=== PATIENT | female | born 1960 | race Caucasian/White ===

== ENCOUNTER → 2016-12-17 | Outpatient (CLI) | payer OTHER ==
[~2016-12-17] MED LIST: ASPIRIN PO; CALCIUM 500 + D1 TAB PO; CERTAGEN PO; ESTRACE PO; NEXIUM PO; PRAVASTATIN SOD20 MG PO; VITAL-D RX TABL1 TAB PO
--- NOTE | ~2016-12-17 | CT2 ---
[facility] A Service of [facility] & [facility] RADIOLOGY TEXT RESULTS PATIENT: LOREE HESS LOCATION: [facility] : 62 UNIT #: [id number] AGE: [address]: Дмитрий Qureshi MD SEX: F ORDER DR: [id number] [facility] [address] [place], [place] [address] [id number] O MR#: [id number] Acc #: [id number] NAME: LOREE HESS : 1960 SEX: F STUDY DATE/TIME: 12/17/2016 14:26 UNIT: [facility] ROOM: STUDY DESCRIPTION: CT Abd and Pelv W Cont Attending Physician: Дмитрий Qureshi M.D. Referring Physician: Дмитрий Qureshi M.D. Ordering Physician: Дмитрий Qureshi M.D. Primary Care Physician: Sherrie Briceno M.D. MEDICAL IMAGING REPORT This report is preliminary unless electronic signature is present EXAM CT abdomen and pelvis 12/17/2014 HISTORY Pain. Right lower quadrant pain since 12/16/2016. History of hysterectomy and bladder repair. TECHNIQUE CT abdomen and pelvis performed with intravenous administration of 100 mL Isovue-370. Enteric contrast also administered. COMPARISON STUDIES 01/29/2015. FINDINGS 3-4 mm noncalcified subpleural nodule posterolateral left lower lobe, image number 1, unchanged from CT of the abdomen dated 04/07/2010, felt to be benign given stability over this time course. Lung bases otherwise remarkable. Prior bilateral augmentation mammoplasty. Inferior heart pericardium unremarkable. 3 subcentimeter hypodense foci of right hepatic lobe, unchanged from prior study, felt to represent stable cysts. Gallbladder unremarkable. Spleen, pancreas, adrenal glands, kidneys normal. No hydronephrosis or hydroureter. No perinephric inflammatory change. CT PELVIS: No inguinal adenopathy. Urinary bladder is unremarkable. Status post hysterectomy. Question of mild generalized prominence of the vaginal wall with some haziness in the perivaginal fat. Correlate with any clinical signs or symptoms of vaginitis. This is a questionable finding and weight should be given to clinical exam. No suspicious adnexal structures. No fluid collections in the pelvis. No pelvic or retroperitoneal adenopathy. Distal esophagus, stomach, small bowel STS. [facility] [place] Service of [facility] RADIOLOGY TEXT RESULTS PATIENT: LOREE HESS LOCATION: [facility] : 62 UNIT #: [id number] AGE: [address]: Дмитрий Qureshi MD SEX: F ORDER DR: unremarkable. Appendix normal. Colon shows uncomplicated sigmoid diverticulosis. Aorta normal in caliber. Portal vein and its tributaries appear patent. Bony structures are unremarkable. IMPRESSION 1. Patient is status post hysterectomy. There is questionable mild prominence of the vaginal wall diffusely with some questionable mild haziness in the perivaginal fat. Please correlate with any clinical signs or symptoms of vaginitis. Weight should be given the clinical assessment. 2. No other potentially acute abnormalities are seen in the abdomen or pelvis. The gallbladder, pancreas, kidneys, appendix are normal in appearance. Remainder of the alimentary canal notable for uncomplicated and mild sigmoid diverticulosis. 3. 3-4 mm noncalcified nodule left posterolateral lower lobe, unchanged from 2010 and felt to be benign in nature. 4. Prior bilateral augmentation mammoplasty. 5. Stable subcentimeter hepatic cysts. Dictated by... Ariel Elmore M.D. THIS IS AN ELECTRONICALLY VERIFIED REPORT Ariel Elmore M.D. at 12/18/2016 2:14 PM CLARA/benito TD: 12/17/2016 15:55 JOB #: [id number] MEDICAL IMAGING REPORT Page 1 of 1 COPY
[2016-12-17 13:11] LABS: HEMATOCRIT 40.4 % (35.0-45.0); HEMOGLOBIN 13.3 gm/dL (12.0-16.0); MEAN CELL VOLUME 91.7 FL (83-96); MEAN CORPUSCULAR HEMOGLOBIN 30.2 PG (28-34); MEAN PLATELET VOLUME 8.9 FL (6.5-11.5); RED BLOOD COUNT 4.41 X10e (3.90-5.30); RED CELL DISTRIBUTION WIDTH 12.7 % (11.0-15.5)
[2016-12-17 13:15] LABS: URINE APPEARANCE CLEAR; URINE BILIRUBIN NEG (NEG); URINE BLOOD 2+ (NEG); URINE COLOR YELLOW; URINE GLUCOSE NEG (NEG); URINE KETONE NEG (NEG); URINE LEUKOCYTE ESTERASE 2+ (NEG); URINE NITRATE NEG (NEG); URINE PROTEIN 1+ (NEG); URINE SPECIFIC GRAVITY 1.017 (1.003-1.035)
[2016-12-17 13:17] LABS: URBCS1 AUWI 50-100 /[HPF] (0-2); URINE BACTERIA AUWI NEG (NEGATIVE); URINE SQUAMOUS EPITHELIAL CELL NONE SEEN /[HPF]; UWBCS1 AUWI 50-100 (0-5)
[2016-12-17 13:28] LABS: URINE SOURCE CLEAN CATCH
[2016-12-17 13:44] LABS: ALBUMIN SERUM 4.1 g/dL (3.5-5.0); BILIRUBIN,TOTAL 0.5 mg/dL (0.2-2.0); BUN/CREATININE RATIO 14.44; CALCIUM SERUM 9.2 mg/dL (8.4-10.2); CREATININE SERUM 0.9 mg/dL (0.6-1.4); GLOM FILT RATE Estimated 72.5 mL/min (>60); POTASSIUM 3.9 mmol/L (3.5-5.1); PROTEIN TOTAL SERUM 6.9 g/dL (6.0-8.3)
== END | disposition home or self-care (01) ==
LOC: CCAT 12:37
PROVIDERS: Surgery
DX: R10.31 Right lower quadrant pain (principal); R91.1 Solitary pulmonary nodule; K76.89 Other specified diseases of liver; Z98.890 Other specified postprocedural states; Z90.710 Acquired absence of both cervix and uterus
CPT/HCPCS: 36415; 74177; 80053; 81003; 85027; 87086; 87088; 87186; Q9967